=== PATIENT | male | born 1950 ===

== ENCOUNTER 2017-07-28 19:48 | Emergency (ER) | payer MEDICARE ==
[2017-07-28 20:50] LABS: Basophils # (Auto) 0.1 K/mm3 (0.0-0.1); Basophils % (Auto) 0.8 % (0.0-1.8); Eosinophils # (Auto) 0.1 K/mm3 (0.0-0.4); Eosinophils % (Auto) 0.7 % (0.0-4.3); Hematocrit 43.7 % (35.5-45.6); Hemoglobin 14.8 gm/dl (11.8-15.2); Lymphocytes # (Auto) 1.9 K/mm3 (1.2-5.4); Lymphocytes % (Auto) 23.2 % (13.4-35.0); Mean Corpuscular HGB Conc 34 % (32-34); Mean Corpuscular Hemoglobin 28 pg (28-32); Mean Corpuscular Volume 84 fl (84-94); Monocytes # (Auto) 0.6 K/mm3 (0.0-0.8); Platelet Count 199 K/mm3 (140-440); Red Blood Count 5.23 M/mm3 (3.65-5.03); Red Cell Distribution Width 13.2 % (13.2-15.2)
[2017-07-28 21:05] LABS: BUN/Creatinine Ratio 21; Blood Urea Nitrogen 21 mg/dL (9-20); Calcium 9.4 mg/dL (8.4-10.2); Hemolysis Index 4
[2017-07-28] MEDS ORDERED: NACL 0.9% 1000 ML 1,000 ML IV ONE (22:27)
--- NOTE | 2017-07-28 23:01 | Emergency Department Report ---
ED General Adult HPI - General Chief complaint: Weakness Stated complaint: WEAKNESS,DIABETIC Time Seen by Provider: 07/28/17 22:26 Source: patient Mode of arrival: Ambulatory Limitations: No Limitations - History of Present Illness Initial comments: Patient is a 67 years old male history of diabetes, came to the ER today with chief complaint of generalized weakness for the last 3-4 days. Patient initial blood sugars more than 600. Patient denied any chest pain or shortness of breath. No nausea no vomiting. No cough. Patient is taking metformin and glipizide. He stated that he is compliant with his diet but he is dealing with a lot of stress due to his marriage. - Related Data Home Medications Medication Instructions Recorded Confirmed Last Taken metFORMIN [Glucophage] 500 mg PO BID 07/28/17 07/28/17 Unknown Allergies Allergy/AdvReac Type Severity Reaction Status Date / Time No Known Allergies Allergy Unverified 07/28/17 20:34 ED Review of Systems ROS: Stated complaint: WEAKNESS,DIABETIC Other details as noted in HPI Comment: All other systems reviewed and negative Constitutional: denies: chills, fever Respiratory: denies: cough, orthopnea, shortness of breath, SOB with exertion, SOB at rest, wheezing Cardiovascular: palpitations. denies: chest pain, dyspnea on exertion, orthopnea, edema, syncope, paroxysmal nocturnal dyspnea Gastrointestinal: denies: abdominal pain, nausea, vomiting, diarrhea, constipation, hematemesis, melena, hematochezia Genitourinary: frequency. denies: urgency, hematuria, discharge, testicular pain, testicular mass Neurological: weakness (generalized). denies: headache, numbness, paresthesias , confusion, abnormal gait, vertigo ED Past Medical Hx - Past Medical History Hx Hypertension: Yes Hx Diabetes: Yes - Social History Smoking Status: Never Smoker Substance Use Type: Marijuana - Medications Home Medications: Home Medications Medication Instructions Recorded Confirmed Last Taken Type metFORMIN [Glucophage] 500 mg PO BID 07/28/17 07/28/17 Unknown History ED Physical Exam - General Limitations: No Limitations General appearance: alert, in no apparent distress - Head Head exam: Present: atraumatic, normocephalic, normal inspection - Eye Eye exam: Present: normal appearance, PERRL - ENT ENT exam: Present: normal exam, normal orophraynx, mucous membranes moist - Neck Neck exam: Present: normal inspection, full ROM. Absent: tenderness, meningismus, lymphadenopathy, thyromegaly - Respiratory Respiratory exam: Present: normal lung sounds bilaterally. Absent: respiratory distress, wheezes, rales, rhonchi, stridor, chest wall tenderness, accessory muscle use, decreased breath sounds, prolonged expiratory - Cardiovascular Cardiovascular Exam: Present: regular rate, normal rhythm, normal heart sounds - GI/Abdominal GI/Abdominal exam: Present: soft, normal bowel sounds. Absent: distended, tenderness, guarding, rebound, rigid, organomegaly, mass, bruit, pulsatile mass , hernia - Extremities Exam Extremities exam: Present: normal inspection, full ROM, normal capillary refill. Absent: tenderness, pedal edema, joint swelling, calf tenderness - Back Exam Back exam: Present: normal inspection, full ROM. Absent: tenderness, CVA tenderness (R), CVA tenderness (L), muscle spasm, paraspinal tenderness, vertebral tenderness - Neurological Exam Neurological exam: Present: alert, reflexes normal. Absent: altered, oriented X3, CN II-XII intact, normal gait, abnormal gait, motor sensory deficit - Skin Skin exam: Present: warm, intact, normal color. Absent: cyanosis, diaphoretic ED Course Vital Signs 07/28/17 07/28/17 07/28/17 20:30 22:58 23:00 Temperature 98.3 F Pulse Rate 99 H 88 72 Respiratory 16 16 15 Rate Blood Pressure 138/85 141/86 O2 Sat by Pulse 99 Oximetry 07/28/17 07/28/17 07/28/17 23:07 23:15 23:30 Temperature Pulse Rate 73 85 84 Respiratory 18 10 L 13 Rate Blood Pressure 124/83 114/80 O2 Sat by Pulse 98 Oximetry 07/28/17 07/29/17 07/29/17 23:46 00:00 00:15 Temperature Pulse Rate 84 84 86 Respiratory 15 12 13 Rate Blood Pressure 114/80 127/80 126/84 O2 Sat by Pulse Oximetry 07/29/17 07/29/17 07/29/17 00:30 00:46 01:00 Temperature Pulse Rate 81 76 Respiratory 10 L 9 L Rate Blood Pressure 123/82 118/78 118/78 O2 Sat by Pulse Oximetry 07/29/17 07/29/17 07/29/17 01:15 01:30 01:45 Temperature Pulse Rate 82 Respiratory 13 Rate Blood Pressure 119/81 113/75 105/72 O2 Sat by Pulse Oximetry - Reevaluation(s) Reevaluation #1: 07/29/17 03:26 Patient stated that he is feeling much better. He stated that he never had his blood sugar that normal since he was diagnosed as diabetes 3 years ago. I believe at this moment patient will need to be on insulin, I will restart him with Humalog 5 units before meals. ED Medical Decision Making - Lab Data Result diagrams: 07/28/17 20:37 07/28/17 20:37 - EKG Data -: EKG Interpreted by Me EKG shows normal: sinus rhythm - EKG Data Interpretation: no acute changes - Radiology Data Radiology results: report reviewed Referring Physician: ARUNA PRITCHETT Patient Name: RUPALI ANDREW Date of : 1950 Sex: Male Report Date: 2017-07-28 Report Status: [place] [address] XRay Report Signed Patient: RUPALI ANDREW MR#: [id number] : 1950 Acct:[id number] Age/Sex: 67 / M ADM Date: 07/28/17 Loc: ED Attending Dr: Ordering Physician: ARUNA PRITCHETT Date of Service: 07/28/17 Procedure(s): XR chest 1V ap Accession Number(s): [id number] cc: ARUNA PRITCHETT Fluoro Time In Minutes: FINAL REPORT PROCEDURE: Chest. TECHNIQUE: Portable AP view. HISTORY: Weakness. COMPARISON: No prior studies are available for comparison. FINDINGS: The heart and mediastinum appear normal. The lungs are clear and well expanded. The soft tissues and regional skeleton are unremarkable. There are no pleural effusions. IMPRESSION: Negative portable chest. Transcribed By: MRM Dictated By: URIEL GARNER MD Electronically Authenticated By: URIEL GARNER MD Signed Date/Time: 07/28/171925 DD/ 25 TD/TT: 07/28/171925 Critical care attestation.: If time is entered above; I have spent that time in minutes in the direct care of this critically ill patient, excluding procedure time. ED Disposition Clinical Impression: Hyperglycemia due to type 2 diabetes mellitus Disposition: DC-01 TO HOME OR SELFCARE Is pt being admited?: No Condition: Stable Instructions: Diabetes Mellitus Type 2 in Adults (ED) Referrals: URIEL VERDUZCO MD [Primary Care Provider] - 3-5 Days
--- NOTE | 2017-07-28 23:29 | XRay Report ---
FINAL REPORT PROCEDURE: Chest. TECHNIQUE: Portable AP view. HISTORY: Weakness. COMPARISON: No prior studies are available for comparison. FINDINGS: The heart and mediastinum appear normal. The lungs are clear and well expanded. The soft tissues and regional skeleton are unremarkable. There are no pleural effusions. IMPRESSION: Negative portable chest.
[2017-07-29 02:27] LABS: Bilirubin,Urine NEG (Negative); Blood,Urine NEG (Negative); Color,Urine Yellow (Yellow); Nitrite,Urine NEG (Negative); Protein,Urine <15 mg/dL mg/dL (Negative); Urobilinogen,Urine < 2.0 mg/dL (<2.0)
[2017-07-29 03:15] LABS: WBC,Urine < 1.0 /HPF (0.0-6.0)
[2017-07-29 03:26] VITALS: BP 121/82
== END 2017-07-29 03:50 | disposition home or self-care (01) ==
LOC: ED 19:48
DX: E11.65 Type 2 diabetes mellitus with hyperglycemia (principal); I10 Essential (primary) hypertension; F12.10 Cannabis abuse, uncomplicated
CPT/HCPCS: 36415; 71045; 80048; 81001; 82805; 82962; 84484; 85025; 93005; 93010; 96361; 96374; 99284; J7030; J1815